=== PATIENT | female | born 1970 | race Caucasian/White ===

== ENCOUNTER 2022-04-10 09:38 | Emergency (ER) | payer BC ==
[2022-04-10 11:02] LABS: CARBON DIOXIDE,CO2 23.1 mmol/L (21.0-32.0); POTASSIUM,K 3.3 mmol/L (3.5-5.1)
== END 2022-04-10 12:18 | disposition home or self-care (01) ==
LOC: MW.ED 09:38
DX: R55 Syncope and collapse (principal); Z72.0 Tobacco use; Z88.0 Allergy status to penicillin; Z20.822 Contact with and (suspected) exposure to COVID-19
CPT/HCPCS: 36415; 71045; 71045-26; 80053; 80305-QW; 81003; 83735; 84443; 84484; 85025; 93005; 99284; U0002